=== PATIENT | female | born 1965 | race Asian ===

== ENCOUNTER 2017-12-19 08:33 | Outpatient (CLI) | payer BC ==
--- NOTE | 2017-12-20 06:51 | MRI Report ---
EXAM MRA BRAIN EXAM DATE: 12/19/2017 09:10 AM. CLINICAL HISTORY: Headache. Family history of cerebral aneurysm.. COMPARISON: None. TECHNIQUE: Multiplanar, multisequence MRA sequences of the brain were performed. Other: None. Post-pr ocessing: Multiplanar 3D MIP reconstructions. IV Contrast: None. FINDINGS: No evidence for aneurysm of the [place]. The source images show findings consistent with tin y posterior communicating arteries with possible small infundibula at their origins. Flow signal attenuation at the junction of the left TRUDI A1 and A2 segments, likely secondary to adjac ent skull base susceptibility artifact. No other evidence for loss of normal intracranial large artery flow signal, no evidence for proximal intracranial large vessel occlusion, focal flow-limiting stenosis or filling defect. No intracranial vertebrobasilar insufficiency. Patent distal internal carotid arteries. IMPRESSION: 1. Normal brain MRA. No stenoses or aneurysms. [facility] Referring Provider Line: [phone] SITE ID: [id number]
== END 2017-12-19 08:34 | disposition home or self-care (01) ==
LOC: DI 08:33
PROVIDERS: ATTEND Family Medicine
DX: R51 Headache (principal); Z82.49 Family history of ischemic heart disease and other diseases of the circulatory system
CPT/HCPCS: 70544

== ENCOUNTER 2018-01-02 10:47 | Day surgery (SDC) | payer BC ==
[2018-01-02] MEDS ORDERED: LACTATED RINGERS 1,000 ML IV ONE (10:55)
[2018-01-02 11:10] LABS: HCG UR QUAL NEGATIVE
[2018-01-02] MEDS ORDERED: fentaNYL 100 MCG/2 ML VIAL IVP ONE (12:00)
[2018-01-02] MEDS ORDERED: MIDAZOLAM 2 MG/2 ML VIAL IVP ONE (12:00)
[2018-01-02 12:40] VITALS: BP 118/53
== END 2018-01-02 10:48 | disposition home or self-care (01) ==
LOC: SDS 10:47
PROVIDERS: ATTEND Surgery
PROC: 0DJD8ZZ Inspection of Lower Intestinal Tract, Via Natural or Artificial Opening Endoscopic (ICD-10-PCS; principal; 2018-01-02 12:00)
DX: Z12.11 Encounter for screening for malignant neoplasm of colon (principal); K64.8 Other hemorrhoids; I10 Essential (primary) hypertension; E78.00 Pure hypercholesterolemia, unspecified; K21.9 Gastro-esophageal reflux disease without esophagitis
CPT/HCPCS: 45378; 81025; J7120

== ENCOUNTER 2019-02-02 11:07 | Outpatient (CLI) | payer BC ==
--- NOTE | 2019-02-02 17:02 | Ultrasound Report ---
Reason: MENORRHAGIA,POSTMENOPAUSAL Procedure Date: 02/02/2019 Accession Number: [id number] / [id number] Procedure: US - Pelvic w/Transvaginal CPT Code: FULL RESULT: EXAM: PELVIC ULTRASOUND EXAM DATE: 02/02/2019 11:38 AM. CLINICAL HISTORY: Menorrhagia, postmenopausal. COMPARISON: 01/19/2008 CT TECHNIQUE: Realtime transabdominal pelvic scan performed to identify the uterus and adnexa and as an overview of other pelvic structures, followed by transvaginal scan to provide greater detail of the uterus and adnexa, with static image documentation. FINDINGS: Uterus: 6.9 x 3.6 x 5 cm, volume 65 cc. Anteverted position. Normal overall size and heterogeneous in echotexture. Masses: 1. Anterior fundal intramural 1.2 x 1.1 x 1.3 cm. 2. Posterior left intramural 1.4 x 1.1 x 1.8 cm. 3. Posterior right intramural 2.2 x 1.9 x 2.6 cm. Endometrium: 2 mm. Normal. Cervix: Unremarkable. Right and Left ovary: Not seen. No adnexal masses. Free Fluid: None. Other: None. IMPRESSION: 1. Normal endometrial echo thickness 2 mm. 2. Myomatous changes of the uterus. 3. Neither ovary is seen. No adnexal masses. [facility]
== END 2019-02-02 11:08 | disposition home or self-care (01) ==
LOC: DI 11:07
PROVIDERS: ATTEND Physician Assistant Medical
DX: N95.0 Postmenopausal bleeding (principal); D25.1 Intramural leiomyoma of uterus
CPT/HCPCS: 76830; 76856

== ENCOUNTER 2020-04-11 09:57 | Outpatient (CLI) | payer BC ==
--- NOTE | 2020-04-11 14:04 | XRAY Report ---
PROCEDURE: Wrist 3 View LT INDICATIONS: LEFT WRIST PAIN TECHNIQUE: 3 views of the wrist were acquired. COMPARISON: None FINDINGS: Bones: No fractures or dislocations. No suspicious bony lesions. Minimal first CMC degenerative na rrowing. Scaphoid view: Not obtained. Soft tissues: No suspicious soft tissue calcifications. IMPRESSION: Minimal first CMC degenerative narrowing. Reviewed by: Jania Denton MD on 04/11/2020 2:02 PM PDT Approved by: Jania Denton MD on 04/11/2020 2:02 PM PDT Station ID: [id number]
== END 2020-04-11 23:59 | disposition home or self-care (01) ==
LOC: DI.WCP 09:57
PROVIDERS: ATTEND Physician Assistant
DX: M18.12 Unilateral primary osteoarthritis of first carpometacarpal joint, left hand (principal)

== ENCOUNTER 2021-03-20 08:00 | Outpatient (CLI) | payer BC | END 2021-03-20 23:59 | disposition home or self-care (01) | LOC: LAB.N 08:00 | PROVIDERS: ATTEND Nurse Practitioner | DX: R39.9 Unspecified symptoms and signs involving the genitourinary system (principal) | CPT/HCPCS: 87086 ==

== ENCOUNTER 2022-05-03 09:15 | Outpatient (CLI) | payer BC ==
--- NOTE | 2022-05-03 11:53 | XRAY Report ---
PROCEDURE: Foot 2 View RT INDICATIONS: R HEEL PX TECHNIQUE: 2 views of the foot were acquired. COMPARISON: None FINDINGS: Bones: No fractures or dislocations. No suspicious bony lesions. Soft tissues: No tibiotalar joint effusion. Achilles tendon appears normal. IMPRESSION: No visualized acute fracture or dislocation. However, occult injury cannot be excluded. Recommend reed rt interval imaging follow-up in 7-10 days as clinically indicated for additional evaluation. Reviewed by: Jania Denton MD on 05/03/2022 11:52 AM PDT Approved by: Jania Denton MD on 05/03/2022 11:52 AM PDT Station ID: [id number]
== END 2022-05-03 09:16 | disposition home or self-care (01) ==
LOC: DI.N 09:15
PROVIDERS: ATTEND Nurse Practitioner Family
DX: M79.671 Pain in right foot (principal)

== ENCOUNTER 2022-06-03 14:03 | Outpatient (CLI) | payer BC ==
--- NOTE | 2022-06-03 16:14 | XRAY Report ---
PROCEDURE: Calcaneus RT INDICATIONS: RT FOOT PX TECHNIQUE: Two views of the calcaneus were acquired. COMPARISON: 05/03/2022 FINDINGS: Bones: No fractures or dislocations. Osteoarthritic changes are noted in visualized midfoot and hind foot joints with joint space narrowing and subchondral sclerosis. Well-defined plantar and dorsal sol caneal enthesophytes are seen. No suspicious bony lesions. Soft tissues: No suspicious calcifications. Thickened distal Achilles tendon near its posterior calc aneal insertion is seen. No gross full-thickness Achilles tendon rupture. IMPRESSION: 1.No calcaneal fracture or dislocation. Osteoarthritic changes seen in visualized midfoot and hindfoo t joints. 2. Well-defined plantar and dorsal calcaneal enthesophytes. Thickened distal Achilles tendon at its c alcaneal insertion suggestive of tendinosis. No gross full-thickness Achilles tendon rupture. Reviewed by: Usman Silverman MD on 06/03/2022 4:13 PM PDT Approved by: Usman Silverman MD on 06/03/2022 4:13 PM PDT Station ID: [id number]
== END 2022-06-03 14:04 | disposition home or self-care (01) ==
LOC: DI 14:03
PROVIDERS: ATTEND Nurse Practitioner Family
DX: M19.071 Primary osteoarthritis, right ankle and foot (principal); M77.31 Calcaneal spur, right foot

== ENCOUNTER 2024-02-28 12:50 | Outpatient (CLI) | payer BC | END 2024-02-28 12:51 | disposition home or self-care (01) | LOC: LAB.N 12:50 | PROVIDERS: ATTEND Physician Assistant Medical | DX: R82.81 Pyuria (principal) | CPT/HCPCS: 87086 ==